=== PATIENT | female | born 1950 | race Hispanic/Latino ===

== ENCOUNTER 2016-08-06 08:09 | Emergency (ER) | payer MEDICARE ==
[2016-08-06] MEDS ORDERED: Sodium Chloride 0.9% 500 ML IV STA (08:15)
[2016-08-06 08:17] VITALS: BMI 35.9
[2016-08-06 08:32] VITALS: TEMP 98.1; O2SAT 98
--- NOTE | 2016-08-06 08:32 | ED PDOC ---
Arrival/HPI - General Time Seen by Provider: 08/06/16 08:14 Historian: Patient - History of Present Illness Narrative History of Present Illness (Text): 08/06/16 08:16 A 66 year old female, whose past medical history includes hypertension, hyperlipidemia and anxiety, sent into the emergency department for a syncopal episode. Patient reports she was in the hospital for a radiological bone scan. While having her blood drawn she became lightheaded and diaphoretic. Patient passed out and a rapid response was called. On evaluation, patient states she feels better, denies any pain just mild generalized weakness. Patient notes she did not have anything to eat this morning because of the procedure. Patient reports she has experienced these same symptoms before when having her blood drawn. Patient denies any fever, chills, nausea, vomiting, diarrhea, abdominal pain, chest pain,shortness of breath or any other complaints. Time/Duration: Prior to Arrival Symptom Course: Unchanged Quality: Other Context: Other Past Medical History - Provider Review Nursing Documentation Reviewed: Yes - Infectious Disease Hx of Infectious Diseases: None - Cardiac Hx Hypertension: Yes - Pulmonary Hx Respiratory Disorders: No - HEENT Hx HEENT Disorder: No - Renal Hx Renal Disorder: No Hx Neurogenic Bladder: No - Endocrine/Metabolic Hx Endocrine Disorders: No - Hematological/Oncological Hx Blood Disorders: No - Integumentary Hx Dermatological Disorder: No - Musculoskeletal/Rheumatological Hx Arthritis: Yes Hx Falls: Yes - Gastrointestinal Hx Gastrointestinal Disorders: No - Genitourinary/Gynecological Hx Urinary Tract Infection: Yes - Psychiatric Hx Anxiety: Yes Hx Depression: Yes Hx Substance Use: No - Surgical History Hx Section: Yes Hx Hysterectomy: Yes Hx Orthopedic Surgery: Yes (BILAT KNEES) - Anesthesia Hx Anesthesia: No Family/Social History - Physician Review Nursing Documentation Reviewed: Yes Family/Social History: No Known Family HX Smoking Status: Unknown If Ever Smoked Hx Alcohol Use: No Hx Substance Use: No Allergies/Home Meds Allergies/Adverse Reactions: Allergies hydromorphone HCl [From Dilaudid] Allergy (Intermediate, Verified 08/06/16 08:32 ) SWELLING morphine Allergy (Verified 08/06/16 08:32) SWELLING Home Medications: Home Meds Medication Instructions Recorded Confirmed Carvedilol [Coreg] 3.125 mg PO BID 05/28/15 08/06/16 Lisinopril [Zestril] 5 mg PO DAILY 05/28/15 08/06/16 Simvastatin [Zocor] 20 mg PO HS 05/28/15 08/06/16 Review of Systems - Physician Review All systems were reviewed & negative as marked: Yes - Review of Systems Constitutional: absent: Fevers, Night Sweats Respiratory: absent: SOB Cardiovascular: Syncope. absent: Chest Pain Gastrointestinal: absent: Abdominal Pain, Nausea, Vomiting Neurological: Other (Lightheadedness) Endocrine: Diaphoresis Physical Exam Vital Signs Temp Pulse Resp BP Pulse Ox 08/06/16 09:31 64 17 136/69 98 08/06/16 08:31 98.1 F 58 L 18 140/64 98 Appearance: Positive for: Well-Appearing, Non-Toxic, Comfortable Pain Distress: None Mental Status: Positive for: Alert and Oriented X 3 - Systems Exam Head: Present: Atraumatic, Normocephalic Pupils: Present: PERRL Extroacular Muscles: Present: EOMI Conjunctiva: Present: Normal Mouth: Present: Moist Mucous Membranes Neck: Present: Normal Range of Motion Respiratory/Chest: Present: Clear to Auscultation, Good Air Exchange. No: Respiratory Distress, Accessory Muscle Use Cardiovascular: Present: Regular Rate and Rhythm, Normal S1, S2. No: Murmurs Abdomen: Present: Normal Bowel Sounds. No: Tenderness, Distention, Peritoneal Signs Back: Present: Normal Inspection Upper Extremity: Present: Normal Inspection. No: Cyanosis, Edema Lower Extremity: Present: Normal Inspection. No: Edema Neurological: Present: GCS=15, CN II-XII Intact, Speech Normal Skin: Present: Warm, Dry, Normal Color. No: Rashes Psychiatric: Present: Alert, Oriented x 3, Normal Insight, Normal Concentration Medical Decision Making ED Course and Treatment: 08/06/16 08:16 Impression: A 66 year old female brought in after a syncopal episode. Patient states she feels better denies any complaints just mild generalized weakness. Differential Diagnosis included but are not limited to: Vasovagal syncope Plan: -- EKG -- Labs -- IV fluids -- Reassess and disposition Progress Notes: 08/06/16 09:35 Patient feels 100% better. She no longer has symptoms. Food helped her feel better as well. She is AAOx3. Neuro exam normal. Walking without ataxia. Family at bedside who will take her home. - Lab Interpretations Lab Results: 08/06/16 08:45 08/06/16 08:45 Lab Results 08/06/16 08:45: Sodium 140, Potassium 4.4, Chloride 108 H, Carbon Dioxide 21, Anion Gap 15, BUN 21, Creatinine 0.9, Est GFR ( Amer) > 60, Est GFR (Non- Af Amer) > 60, Random Glucose 95, Calcium 9.7 08/06/16 08:45: WBC 6.0 D, RBC 4.30, Hgb 13.1, Hct 39.1, MCV 90.9, MCH 30.5, MCHC 33.5, RDW 14.0, Plt Count 223, MPV 8.5, Gran % 51.8, Lymph % (Auto) 37.2 H , [place] % (Auto) 4.5, Eos % (Auto) 5.7 H, Baso % (Auto) 0.8, Gran # 3.11, Lymph # 2.2, [place] # 0.3, Eos # 0.3, Baso # 0.05 I have reviewed the lab results: Yes - Medication Orders Current Medication Orders: Discontinued Medications Sodium Chloride (Sodium Chloride 0.9%) 500 mls @ 999 mls/hr IV .Q31M STA Stop: 08/06/16 08:45 Last Admin: 08/06/16 08:49 Dose: 999 mls/hr - Scribe Statement The provider has reviewed the documentation as recorded by the Scribe Katt Alcala Provider Scribe Attestation: All medical record entries made by the Scribe were at my direction and personally dictated by me. I have reviewed the chart and agree that the record accurately reflects my personal performance of the history, physical exam, medical decision making, and the department course for this patient. I have also personally directed, reviewed, and agree with the discharge instructions and disposition. Disposition/Present on Arrival - Present on Arrival Any Indicators Present on Arrival: No History of DVT/PE: No History of Uncontrolled Diabetes: No Urinary Catheter: No History Surgical Site Infection Following: None - Disposition Have Diagnosis and Disposition been Completed?: Yes Diagnosis: Vasovagal syncope Disposition: HOME/ ROUTINE Disposition Time: 09:36 Patient Plan: Discharge Condition: IMPROVED Discharge Instructions (ExitCare): Syncope (ED) Additional Instructions: Chaitanya, thank you for letting us take care of you today. Your provider was Dr. Jacques. You were treated for Vasovagal Syncope. The emergency medical care you received today was directed at your acute symptoms. If you were prescribed any medication, please fill it and take as directed. It may take several days for your symptoms to resolve. Return to the Emergency Department if your symptoms worsen, do not improve, or if you have any other problems. Please contact your doctor or call one of the physicians/clinics you have been referred to that are listed on the Patient Visit Information form that is included in your discharge packet. Bring any paperwork you were given at discharge with you along with any medications you are taking to your follow up visit. Our treatment cannot replace ongoing medical care by a primary care provider (PCP) outside of the emergency department. Thank you for allowing the [facility] team to be part of your care today. If you had an X-Ray or CT scan: A Radiologist will review the ED reading if any change in treatment is needed we will contact you. If you had a blood, urine, or wound culture: It will take several days for the results, if any change in treatment is needed we will contact you. If you had an STI test: It will take 48 hours for the results. Please call after 1 week if you have not heard back. Referrals: Uriah Lopez, [Primary Care Provider] - Follow up with primary Forms: [employer] (K[place]z), WORK NOTE
[2016-08-06 08:53] LABS: ADD MANUAL DIFF? NO
[2016-08-06 08:58] LABS: BASO # 0.05 K/mm3 (0.0-2.0); BASO % 0.8 % (0.0-3.0); EOS # 0.3 (0.0-0.7); EOS % 5.7 % (1.5-5.0); GRAN # 3.11 (1.4-6.5); GRAN % 51.8 % (50.0-68.0); HEMATOCRIT 39.1 % (36.0-48.0); LYMPH # 2.2 (1.2-3.4); LYMPH % 37.2 % (22.0-35.0); MEAN CELL VOLUME 90.9 fL (80.0-105.0); MEAN CORPUSCULAR HEMOGLOBIN 30.5 pg (25.0-35.0); MEAN CORPUSCULAR HGB CONC 33.5 g/dl (31.0-37.0); MEAN PLATELET VOLUME 8.5 fl (7.0-11.0); MONO # 0.3 (0.1-0.6); MONO % 4.5 % (1.0-6.0); PLATELET COUNT 223 10^3/uL (120.0-450.0)
[2016-08-06 09:05] LABS: BLOOD UREA NITROGEN 21 mg/dL (7-21); CALCIUM 9.7 mg/dL (8.4-10.5); CARBON DIOXIDE 21 mmol/L (21-33); CHLORIDE 108 mmol/L (98-107); GFR AFRICAN-AMERICAN > 60; GLUCOSE,RANDOM 95 mg/dL (70-110); POTASSIUM 4.4 mmol/L (3.6-5.0); SODIUM 140 mmol/L (132-148)
[2016-08-06 09:32] VITALS: RESP 17
--- NOTE | 2016-08-06 16:32 | PCM.RRTMUL ---
LINE FISHER Nurse Assessment - Situation LINE FISHER Responder Arrival Time:: 08:10 Location:: ED Room Number:: Bed 3 LINE FISHER Reason for Call: Change in Mental Status (Pt has near syncopal episode) - Respiratory Oxygen Delivery Method:: Room Air Was the Patient Intubated?: No Was the Patient Placed on a Ventilator?: No - Diagnostic Test Ordered EKG:: Yes (1st degree block, NSR) CPR started during LINE FISHER?: No - Vital Signs Blood Pressure:: 136/69 Pulse Rate:: 64 Respiratory Rate:: 17 Temperature:: 98.1 F Oxygen Saturation:: 100 - [place] Coma Scale Coma Scale Eye Opening:: Spontaneous Coma Scale Motor:: Obeys Commands Movement Coma Scale Verbal:: Oriented Coma Scale Total:: 15 - Recommendations 5) LINE FISHER Level of Care Recommendations: Remain in current setting I.Reason for LINE FISHER - A) Acute Change in Patient: (Select all that apply): Acute change in mental status (near syncope) - A) Initial Vital Signs: Blood Pressure: 126/88 Pulse Rate: 74 Temperature: 98.1 F O2 Sat by Pulse Oximetry: 99 - B) Neurological Status (Select all that apply): Alert, Responsive, Oriented, Verbal, Follows Commands - C) Respiratory Oxygen Delivery Method: Room Air - Constitutional Appears: No Acute Distress - Head Head Exam: ATRAUMATIC, NORMAL INSPECTION, NORMOCEPHALIC - Eyes Eye Exam: EOMI, Normal appearance, PERRL - Respiratory Exam Respiratory Exam: Clear to Ausculation Bilateral, NORMAL BREATHING PATTERN - Cardiovascular Exam Cardiovascular Exam: RRR, +S1, +S2 - GI/Abdominal Exam GI & Abdominal Exam: Soft, Normal Bowel Sounds. absent: Tenderness - Neurological Exam Neurological Exam: Alert, Awake, CN II-XII Intact, Normal Gait, Oriented x3 - Extremities Exam Extremities Exam: Full ROM, Normal Capillary Refill, Normal Inspection Plan - A. End of LINE FISHER Vital Signs: Blood Pressure: 126/88 Pulse Rate: 74 Temperature: 98.1 F - B. Assessment of Findings&Treatment Plan Pt had a near syncopal episode during EBC scan procedure in nuclear medicine lab , Pt become queezy at the site of blood and is what triggered her response. Pt was subsequently transferred to the ED where the pt recovered and was feeling much better. Pt HD stable and in no acute distress at the time of examination.
[2016-08-06 16:35] VITALS: BP 126/88; PULSE 74
--- NOTE | 2016-08-06 22:51 | CARD ---
APPROVED REPORT EKG Measurement Heart [id number] <Conclusion> Sinus rhythm with 1st degree AV block Otherwise normal ECG
== END 2016-08-06 09:32 | disposition home or self-care (01) ==
LOC: ED 08:09
DX: R55 Syncope and collapse (principal); I10 Essential (primary) hypertension; E78.5 Hyperlipidemia, unspecified; F41.9 Anxiety disorder, unspecified
CPT/HCPCS: 80048; 85025; 93005; 99285; J7040

== ENCOUNTER → 2018-05-31 | Outpatient (CLI) | payer MEDICARE | LOC: LAB 07:17 ==